=== PATIENT | female | born 1980 | race Caucasian/White ===

== ENCOUNTER 2019-12-14 20:03 | Emergency (ER) | payer OTHER ==
[2019-12-14] MEDS ORDERED: Ketorolac 30 MG/ML SDV IM ONE (20:52)
[2019-12-14] MEDS ORDERED: Cyclobenzaprine 10 MG Tab PO ONE (20:52)
--- NOTE | 2019-12-14 21:02 | EDM.PDOC ---
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 - Past Surgical History Musculoskeletal Surgical History: Reports: Other (See Below) Other Musculoskeletal Surgeries/Procedures:: Fx left arm as a child Social & Family History - Tobacco Use Smoking Status *Q: Never Smoker Second Hand Smoke Exposure: No - Caffeine Use Caffeine Use: Reports: None - Recreational Drug Use Recreational Drug Use: No ED ROS GENERAL - Review of Systems Review Of Systems: Comprehensive ROS is negative, except as noted in HPI. ED EXAM, UPPER BACK/NECK PAIN - Physical Exam Exam: See Below Exam Limited By: No Limitations General Appearance: Alert, WD/WN, Mild Distress, Other (discomfort) Ears Exam: Hearing Grossly Normal Throat/Mouth Exam: Normal Voice, No Airway Compromise Head Exam: Atraumatic Neck Exam: Non-Tender, Full Range of Motion Nexus Criteria: No: Posterior, Midline Cervical Tenderness, Evidence of Intoxication, Altered Level of Consciousness, Focal Neurological Deficit, Painful Distraction Injuries Cardiovascular/Respiratory: Regular Rate, Rhythm, No Respiratory Distress GI/Abdominal: Soft, Non-Tender Back Exam: Muscle Spasm, Paraspinal Tenderness, Other ([id number]) Neurologic: No Motor/Sensory Deficits, Alert, Normal Mood/Affect, Oriented x 3 Psychiatric: Normal Affect, Normal Mood Skin Exam: Normal Color, Warm/Dry Lymphatic: No Adenopathy Course - Vital Signs Last Recorded V/S: Last Vital Signs Temp 36.1 C 12/14/19 20:21 Pulse 73 12/14/19 20:21 Resp 16 12/14/19 20:21 BP 118/53 L 12/14/19 20:21 Pulse Ox 99 12/14/19 20:21 - Orders/Labs/Meds Orders: Active Orders 24 hr Category Date Time Status Cyclobenzaprine [Flexeril] Med 12/14/19 20:52 Once 10 mg PO ONETIME ONE Ketorolac [Toradol] Med 12/14/19 20:52 Once 30 mg IM ONETIME ONE Departure - Departure Time of Disposition: 21:03 Disposition: Home, Self-Care 01 Condition: Good Clinical Impression: Thoracolumbar back pain - Discharge Information Instructions: Muscle Strain, [id number] Additional Instructions: 1) avoid lifting bending straining next 48 hours 2) try heat or ice to sore areas 3) follow up at clinic Sepsis Event Note (ED) - Evaluation Sepsis Screening Result: No Definite Risk - Focused Exam Vital Signs: Vital Signs Temp Pulse Resp BP Pulse Ox 12/14/19 20:21 36.1 C 73 16 118/53 L 99 - My Orders Last 24 Hours: My Active Orders 12/14/19 20:52 Cyclobenzaprine [Flexeril] 10 mg PO ONETIME ONE Ketorolac [Toradol] 30 mg IM ONETIME ONE - Assessment/Plan Last 24 Hours: My Active Orders 12/14/19 20:52 Cyclobenzaprine [Flexeril] 10 mg PO ONETIME ONE Ketorolac [Toradol] 30 mg IM ONETIME ONE
== END 2019-12-14 21:10 | disposition home or self-care (01) ==
LOC: DL.ED 20:03
DX: M54.6 Pain in thoracic spine (principal); M54.5 Low back pain; Z88.8 Allergy status to other drugs, medicaments and biological substances
CPT/HCPCS: 96374; 99283; A9270; J1885